=== PATIENT | male | born 1995 | race African-American/Black ===

== ENCOUNTER 2019-09-26 07:15 | Emergency (ER) | payer OTHER ==
[~2019-09-26] VITALS: Ht 190.5 cm; Wt 86.2 kg
[2019-09-26 07:42] LABS: URINE BILIRUBIN NEGATIVE (Negative); URINE BLOOD 3+ (Negative); URINE CLARITY CLEAR; URINE COLOR YELLOW; URINE GLUCOSE-RANDOM NEGATIVE (Negative); URINE KETONES NEGATIVE (Negative); URINE LEUKOCYTES-REFLEX TRACE (Negative); URINE NITRITE-REFLEX NEGATIVE (Negative); URINE PROTEIN NEGATIVE (Negative); URINE SPECIFIC GRAVITY 1.015 (1.005-1.030); URINE UROBILINOGEN 0.2 E.U./dl (0.2-1.0)
[2019-09-26 07:48] LABS: SQUAMOUS 4-10 Moderate /LPF (0-3)
[2019-09-26 07:49] LABS: URINE WBC-REFLEX 6-15 Few /HPF (0-5)
[2019-09-26 07:50] LABS: BACTERIA-REFLEX 1-9 Few /HPF (None Seen); CASTS None Seen /LPF (None Seen); CRYSTALS None Seen /LPF (None Seen); MUCUS 0-3 Light strn/LPF (None Seen)
[2019-09-26] MEDS ORDERED: SUPRAX400 M1 PO (08:09)
[2019-09-26] MEDS ORDERED: AZITHROMYCIN 2250 MG PO (08:09)
[2019-09-26] MEDS ORDERED: CIPROFLOXACIN500 M1 PO (08:09)
[2019-09-26 08:17] VITALS: BP 135/70
== END 2019-09-26 08:17 | disposition home or self-care (01) ==
LOC: M.ERS 07:15
PROVIDERS: Family Medicine
DX: N39.0 Urinary tract infection, site not specified (principal); F12.90 Cannabis use, unspecified, uncomplicated